=== PATIENT | female | born 1990 | race Caucasian/White ===

== ENCOUNTER 2017-07-01 01:34 | Inpatient (IN) ==
[2017-07-01 02:06] LABS: Bilirubin,Urine Negative (Negative); Blood,Urine Moderate (Negative); Clarity,Urine Cloudy (Clear); Color,Urine Yellow (Yellow); Glucose,Urine (UA) Normal (Normal); Ketones,Urine Trace mg/dL (Negative); Leukocyte Esterase,Urine Large (Negative); Nitrite,Urine Negative (Negative); PH,Urine 6.5 pH Units (5.0-8.0); Protein,Urine Negative (Neg-Trace); Urobilinogen,Urine Normal (Normal)
[2017-07-01 02:08] LABS: Bacteria,Urine Many per hpf (None-Few); Hyaline Casts,Urine None Seen per lpf (None-Few); Squamous Epithelial Cell,Urine Many per lpf (None-Few); WBC,Urine TNTC per hpf (0-3)
[2017-07-01 02:12] LABS: Amphetamine Screen,Urine Negative ng/mL (Cutoff=1000); Barbiturate Screen,Urine Negative ng/mL (Cutoff=200); Benzodiazepines Screen,Urine Negative ng/mL (Cutoff=200); Cannabinoid Screen,Urine Negative ng/mL (Cutoff = 50); Cocaine Screen,Urine Negative ng/mL (Cutoff= 300); Opiate Screen,Urine Negative ng/mL (Cutoff=300); Phencyclidine Screen,Urine Negative ng/mL (Cutoff=25)
[2017-07-01 02:14] LABS: Basophils % 0.3 %; Eosinophils % 0.4 %; Hematocrit 42.9 % (35.3-44.9); Hemoglobin 14.6 g/dL (11.5-15.4); Immature Granulocytes % 0.3 % (0-4); Lymphocytes # 2.4 K/mcL (0.6-4.6); Lymphocytes % 24.8 %; Mean Corpuscular Volume 88.3 fL (83.0-100.0); Mean Platelet Volume 8.7 fL (9.4-12.4); Monocytes # 0.5 K/mcL (0.0-1.3); Monocytes % 4.9 %; Neutrophils # 6.8 K/mcL (1.6-8.9); Platelet Count 269 K/mcL (140-400); Red Blood Count 4.86 M/mcL (3.82-4.97); Red Cell Distribution Width 12.8 % (11.5-14.5); Segmented Neutrophils % 69.3 %
[2017-07-01] MEDS ORDERED: Nitrofurantoin (BID) 100 MG CAPSULE PO ONE (02:20)
[2017-07-01 02:33] LABS: BUN/Creatinine Ratio 17 (6-26); Blood Urea Nitrogen 14 mg/dL (7-20); Calcium 9.5 mg/dL (8.6-10.8); Carbon Dioxide 23 mEq/L (19-29); Chloride 105 mEq/L (98-109); Glucose 97 mg/dL (70-99); Osmolality,Calculated 288 (280-300); Potassium 3.6 mEq/L (3.5-4.5); Sodium 139 mEq/L (136-145); eGFR For African Americans > 60 (> 60); eGFR For Non-African Americans > 60 (> 60)
[2017-07-01 02:35] LABS: Acetaminophen < 1.0 mcg/mL (10-30); Ethanol < 10 mg/dL (0-10); Salicylate < 5.0 mg/dL (15-30)
--- NOTE | 2017-07-01 02:40 | Emergency Department Note ---
Disposition Clinical Impression: Suicidal ideation Overdose Qualifiers: Encounter type: initial encounter Injury intent: intentional self-harm Qualified Code(s): T50.902A - Poisoning by unspecified drugs, medicaments and biological substances, intentional self-harm, initial encounter UTI (urinary tract infection) Qualifiers: Urinary tract infection type: acute cystitis Hematuria presence: with hematuria Qualified Code(s): N30.01 - Acute cystitis with hematuria Disposition: Admitted As Inpatient Condition: Good General Adult HPI - General Chief complaint: ED Psychiatric Symptoms Stated complaint: suicide attempt Time Seen by Provider: 07/01/17 01:49 Source: patient Mode of arrival: ambulatory Limitations: no limitations Nursing Notes Reviewed: Yes Vital Signs Reviewed: Yes - History of Present Illness HPI Narrative: 26-year-old female who reports that approximately 1-2 hours prior to arrival she took 80 mg of BuSpar in an attempt to kill herself. She reports she takes an antidepressant also but did not overdose on it and does not know what it is. She states that she is depressed and wanted to kill herself due to social issues with her boyfriend. She denies having any other medical problems aside from depression. She denies having any pain. She denies any urinary symptoms or abdominal pain. She states that she feels tired but otherwise feels well. Denies fever. No N/V/D. Pain Scale: 0 Improves with: nothing Worsens with: nothing Associated symptoms: Reports: denies other symptoms Treatments Prior to Arrival: none - Related Data Home Medications Medication Instructions Recorded Confirmed Buspirone HCl [Buspar] 10 mg PO BID PRN 07/01/17 07/01/17 Allergies Allergy/AdvReac Type Severity Reaction Status Date / Time No Known Allergies Allergy Verified 07/01/17 01:37 All systems ED: reviewed and negative except as stated. Constitutional: Denies: fever Cardiovascular: Denies: chest pain Respiratory: Denies: cough Gastrointestinal: Denies: abdominal pain Musculoskeletal: Denies: back pain Integumentary: Denies: rash Endocrine: Reports: fatigue Past Medical History - Past Medical History Medical history: Reports: thyroid disease Psychiatric history: Reports: anxiety, depression - Social History Smoking Status: Never smoker Smokeless Tobacco Status: No Alcohol use: Reports: rarely Drug use: Reports: none Physical Exam - General Limitations: no limitations General appearance: alert, other - Head Head exam: atraumatic - Eye Eye exam: Present: normal appearance, PERRL - ENT ENT exam: normal exam, normal oropharynx - Neck Neck exam: Present: normal inspection - Chest Chest inspection: Present: normal inspection - Respiratory Respiratory exam: Present: normal lung sounds bilaterally. Absent: respiratory distress - Cardiovascular Cardiovascular exam: Present: regular rate, normal rhythm - Abdominal Exam Abdominal exam: Present: soft, Non-Tender - Extremities Exam Extremities exam: Present: normal inspection - Neurological Exam Neurological exam: Present: alert, oriented X3, CN II-XII intact - Psychiatric Psychiatric exam: Present: depressed - Skin Skin exam: Present: warm, dry Course Course Narrative: She has no hyperreflexia. She is not exhibiting a toxidrome currently. She has mild fatigue. No QT prolongation. Spoke with poison control who state at that dose the main symptoms should be drowsiness and possibly nausea. Length of observation of 12 hours recommended. UTI is present, will admit for medical clearance. Vital Signs Temperature 97.4 F L 07/01/17 01:39 Pulse Rate 84 07/01/17 01:39 Respiratory Rate 14 07/01/17 01:39 Blood Pressure 136/81 07/01/17 01:39 O2 Sat by Pulse Oximetry 98 07/01/17 01:39 Temperature 97.4 F L 07/01/17 01:39 Pulse Rate 84 07/01/17 01:39 Respiratory Rate 14 07/01/17 03:08 Blood Pressure 128/78 07/01/17 03:08 O2 Sat by Pulse Oximetry 98 07/01/17 01:39 Oxygen Delivery Oxygen Delivery Room Air Medical Decision Making - Medical Records Medical records reviewed: Yes I reviewed the patient's medical records. - Lab Data Lab results reviewed: Yes I reviewed the patient's lab results. Result diagrams: 07/01/17 02:06 07/01/17 02:06 Lab Results 07/01/17 07/01/17 07/01/17 Range/Units 01:55 01:55 02:06 WBC 9.8 (4.3-11.1) K/mcL RBC 4.86 (3.82-4.97) M/mcL Hgb 14.6 (11.5-15.4) g/dL Hct 42.9 (35.3-44.9) % MCV 88.3 (83.0-100.0) fL MCH 30.0 (28.0-33.3) pg MCHC 34.0 (31.6-35.5) g/dL RDW 12.8 (11.5-14.5) % Plt Count 269 (140-400) K/mcL MPV 8.7 L (9.4-12.4) fL Immature Gran % 0.3 (0-4) % Seg Neutrophils % 69.3 % Lymphocytes % 24.8 % Monocytes % 4.9 % Eosinophils % 0.4 % Basophils % 0.3 % Neutrophils # 6.8 (1.6-8.9) K/mcL Lymphocytes # 2.4 (0.6-4.6) K/mcL Monocytes # 0.5 (0.0-1.3) K/mcL Eosinophils # 0.0 (0.0-0.6) K/mcL Basophils # 0.0 (0.0-0.2) K/mcL Sodium (136-145) mEq/L Potassium (3.5-4.5) mEq/L Chloride (98-109) mEq/L Carbon Dioxide (19-29) mEq/L BUN (7-20) mg/dL Creatinine (0.57-1.11) mg/dL Est GFR ( Amer) (> 60) Est GFR (Non-Af Amer) (> 60) BUN/Creatinine Ratio (6-26) Glucose (70-99) mg/dL Calculated Osmolality (280-300) Calcium (8.6-10.8) mg/dL Urine Color Yellow (Yellow) Urine Clarity Cloudy A (Clear) Urine pH 6.5 (5.0-8.0) pH Units Ur Specific [place] 1.020 (1.010-1.025) Urine Protein Negative (Neg-Trace) mg/dL Urine Glucose (UA) Normal (Normal) mg/dL Urine Ketones Trace H (Negative) mg/dL Urine Blood Moderate H (Negative) Urine Nitrite Negative (Negative) Urine Bilirubin Negative (Negative) Urine Urobilinogen Normal (Normal) mg/dL Ur Leukocyte Esterase Large H (Negative) Urine Microscopic RBC 5-15 H (0-3) per hpf Urine Microscopic WBC TNTC H (0-3) per hpf Ur Squamous Epith Cells Many H (None-Few) per lpf Urine Bacteria Many H (None-Few) per hpf Hyaline Casts None Seen (None-Few) per lpf Salicylates (15-30) mg/dL Urine Opiates Screen Negative (Kzrogb=636) ng/mL Acetaminophen (10-30) mcg/mL Ur Barbiturates Screen Negative (Qfnlzi=171) ng/mL Ur Phencyclidine Scrn Negative (Cutoff=25) ng/mL Ur Amphetamines Screen Negative (Fiqbdd=7726) ng/mL U Benzodiazepines Scrn Negative (Xdlgka=802) ng/mL Urine Cocaine Screen Negative (Cutoff= 300) ng/mL U Marijuana (THC) Screen Negative (Cutoff = 50) ng/mL Ethyl Alcohol (0-10) mg/dL 07/01/17 Range/Units 02:06 WBC (4.3-11.1) K/mcL RBC (3.82-4.97) M/mcL Hgb (11.5-15.4) g/dL Hct (35.3-44.9) % MCV (83.0-100.0) fL MCH (28.0-33.3) pg MCHC (31.6-35.5) g/dL RDW (11.5-14.5) % Plt Count (140-400) K/mcL MPV (9.4-12.4) fL Immature Gran % (0-4) % Seg Neutrophils % % Lymphocytes % % Monocytes % % Eosinophils % % Basophils % % Neutrophils # (1.6-8.9) K/mcL Lymphocytes # (0.6-4.6) K/mcL Monocytes # (0.0-1.3) K/mcL Eosinophils # (0.0-0.6) K/mcL Basophils # (0.0-0.2) K/mcL Sodium 139 (136-145) mEq/L Potassium 3.6 (3.5-4.5) mEq/L Chloride 105 (98-109) mEq/L Carbon Dioxide 23 (19-29) mEq/L BUN 14 (7-20) mg/dL Creatinine 0.81 (0.57-1.11) mg/dL Est GFR ( Amer) > 60 (> 60) Est GFR (Non-Af Amer) > 60 (> 60) BUN/Creatinine Ratio 17 (6-26) Glucose 97 (70-99) mg/dL Calculated Osmolality 288 (280-300) Calcium 9.5 (8.6-10.8) mg/dL Urine Color (Yellow) Urine Clarity (Clear) Urine pH (5.0-8.0) pH Units Ur Specific [place] (1.010-1.025) Urine Protein (Neg-Trace) mg/dL Urine Glucose (UA) (Normal) mg/dL Urine Ketones (Negative) mg/dL Urine Blood (Negative) Urine Nitrite (Negative) Urine Bilirubin (Negative) Urine Urobilinogen (Normal) mg/dL Ur Leukocyte Esterase (Negative) Urine Microscopic RBC (0-3) per hpf Urine Microscopic WBC (0-3) per hpf Ur Squamous Epith Cells (None-Few) per lpf Urine Bacteria (None-Few) per hpf Hyaline Casts (None-Few) per lpf Salicylates < 5.0 L (15-30) mg/dL Urine Opiates Screen (Stjcxe=208) ng/mL Acetaminophen < 1.0 L (10-30) mcg/mL Ur Barbiturates Screen (Wumnxh=702) ng/mL Ur Phencyclidine Scrn (Cutoff=25) ng/mL Ur Amphetamines Screen (Sdradd=4458) ng/mL U Benzodiazepines Scrn (Xxxnge=311) ng/mL Urine Cocaine Screen (Cutoff= 300) ng/mL U Marijuana (THC) Screen (Cutoff = 50) ng/mL Ethyl Alcohol < 10 (0-10) mg/dL - Radiology Data Radiology results reviewed: Yes I reviewed the patient's radiology results. - EKG Data EKG #1 EKG attestation: Yes I reviewed and interpreted this EKG. EKG shows normal: sinus rhythm Rate: normal Rhythm: NSR [place]/QRS: normal Interpretation: no acute changes, other (QTC 384) Attestation Statement - Attestation Attestation: I, Mauro Alvarez, examined this patient and my medical decision-making was reviewed with the WASHER ENGINEER/PA/Advanced Practice Nurse/Resident Physician. I agree with the documented findings, disposition and treatment plan as described except to the extent set forth below. 26-year-old female presents to the emergency department after suicide attempt. Mother called EMS after learning patient had taken 8 tabs of buspirone in an attempt to end her life. Patient states that she has been under increased stress secondary to relationship problems. No history of suicide attempt in the past. Patient denies attempts other than medication overdose. EKG taken in the emergency department showed normal sinus rhythm with rate of 77 with QRS of 85 and QTC of 384. Patient is alert and oriented during the exam, has no clonus on exam. Patient is mildly nauseated. She will be admitted to the hospital for further care and evaluation. The resident spoke with the Poison Control Center who recommended observation for 12 hours
[2017-07-01] MEDS ORDERED: Ondansetron ODT 4 MG TAB.RAPDIS SL ONE (02:45)
[2017-07-01] MEDS ORDERED: Naloxone 0.4 MG/ML INJ IVP PRN (03:09)
--- NOTE | 2017-07-01 03:26 | Internal Med History&Physical ---
Date of Encounter: 07/01/17 Time of Encounter: 03:11 Assessment and Plan (1) Overdose Current visit: No Status: Acute buspirone overdose d/w ED who d/w poison control, tele monitoring over next 12 hours, IVF Qualifiers: Encounter type: initial encounter Injury intent: intentional self-harm Qualified Code(s): T50.902A - Poisoning by unspecified drugs, medicaments and biological substances, intentional self-harm, initial encounter (2) Suicidal ideation Current visit: No Status: Acute sitter, suicide precautions, consult psych for eval suitability to return home (3) Pyuria Current visit: No Status: Acute empiric macrobid Internal Medicine - H&P: HPI Chief complaint: Overdose History of present illness: Ms. Piedra is a 26 year old female with hx of depression/anxiety who presented after overdose of buspirone. She gets her buspirone from her PCP and has a hx of depression on and off through the years. Due to social issues, she has been feeling more down lately in the last few weeks. She is not established with a mental health provider but reports that she is pending establishment of care with a provide in [place]. Today, she felt depressed and recall taking 8 pills of buspirone in an attempt get respite. EKG personally reviewed with rate 77, NSR, QTC 384 Past Med Surg Social Fam HX - Past Medical History Medical history: thyroid disease Psychiatric history: anxiety, depression - Social History Smoking Status: Never smoker Smokeless Tobacco Status: No Alcohol use: rarely Drug use: none Internal Medicine - H&P: Meds Buspirone HCl [Buspar] 10 mg PO BID PRN 07/01/17 [History] 3 Allergy/AdvReac Type Severity Reaction Status Date / Time No Known Allergies Allergy Verified 07/01/17 01:37 All Systems PM: A 10-system review of systems was performed and is negative for pertinent findings except as documented above in the HPI. Review of systems: ROS 14 point review of systems reviewed as best as possible given presentation. Pertinent positive or negative as per HPI or otherwise reviewed as negative - Constitutional Vitals: Temp Pulse Resp BP Pulse Ox 97.4 F L 84 14 128/78 98 07/01/17 01:39 07/01/17 01:39 07/01/17 03:08 07/01/17 03:08 07/01/17 01:39 Exam: General - AAO x 3 Psych - Appropriate affect/speech. No agitation Eyes - DARYL. Eye lids intact. No scleral icterus Heart - Sinus. RRR. S1 and S2 present. No added HS/murmurs appreciated. No elevated JVD appreciated. Lung - Adequate air entry b/l, No crackles/wheezes appreciated GI - Soft, non-tender. No hepatosplenomegaly/ascites. BS+ - No CVA/suprapubic tenderness or palpable bladder distension Skin - Intact. No rash/petechiae/ecchymosis. Warm extremities MSK - Joints with normal ROM. No joint swellings Internal Med - H&P Results - Labs CBC & Chem 7: 07/01/17 02:06 07/01/17 02:06
[2017-07-01] MEDS: Ondansetron ODT 4 MG TAB.RAPDIS SL PRN ×2 (03:46→12:53)
[2017-07-01] MEDS: 0.9 % Sodium Chloride 1,000 ML IVC SCH ×2 (04:24→14:23)
[2017-07-01] MEDS ORDERED: Nitrofurantoin (BID) 100 MG CAPSULE PO SCH (08:00)
--- NOTE | 2017-07-01 12:23 | Consult Note ---
Date of Encounter: 07/01/17 Time of Encounter: 11:40 Assessment & Recommendation (1) Major depressive disorder, recurrent episode Current visit: Yes Status: Acute Assessment & Recommendation: patient to start her medication prozac 20 mg po am. f/u with therapist and psychiatrist. Qualifiers: Major depression episode severity: moderate Qualified Code(s): F33.1 - Major depressive disorder, recurrent, moderate History of Present Illness Patient: new to practice Requesting Physician: Christina Flores CNP Reason for consult: overdose History of present illness: Ms. Piedra is a 26 year old female evaluated today , she was consulted as she overdosed on 8 pills of buspirone . she has h/o depression and anxiety , states she had stopped taking her medication for several months as felt good and thought did not need it. She moved to [place] with her 8 yr old to live with her boyfriend, things did not work out and he told her we need to take step back and her depression and anxiety got worse, she did not wanted to hurt her but was very stressed and anxious so took 8 pills and then called friend , who then called ambulance. she at present is not suicidal and does not want to hurt self, wants to get better . She has h/o panic attacks, and denies any previous si / attempts , no psych inpatient, getting medicine from PCp . no h/o psychosis or manic episode AT PRESENT remains depress, anxious but not suicidal or homicidal. she has made appointment for 07/04 with therapist and has support from her mother , with whom she is planning to live with , she works as cook and pilates instructor at [employer]. A/P Major depressive episode recurrent. anxiety disorder nos REC: patient should be started back on 20 mg prozac which helped her before and follow up appointment with counsellor and out patient . she is Not in immenent danger to self/others , cleared from psych. Thank you for consult. CC: Christina Flores CNP Past Med Surg Social Fam HX - Past Medical History Medical history: thyroid disease - Past Psychiatric History Psychiatric history: Reports: anxiety, depression Family psychiatric history: Unknown Family History of Suicide: None - Social History Smoking Status: Never smoker Smokeless Tobacco Status: No Alcohol use: rarely Drug use: none Medications & Allergies FLUoxetine HCl [Prozac] 40 mg PO DAILY 07/01/17 [History] Levothyroxine Sodium [Levoxyl] 88 mcg PO DAILY 07/01/17 [History] 3 Allergy/AdvReac Type Severity Reaction Status Date / Time No Known Allergies Allergy Verified 07/01/17 01:37 Review of Systems Psychiatric: Reports: depression, anxiety, panic attacks Mental Status Exam Patient orientation: Yes Person, Yes Time, Yes Place Level of alertness: Alert Patient appearance: Appropriate Behavior: calm, cooperative Psychomotor activity: Normal Eye contact: Maintains Eye Contact Mood description: Depressed, Anxious Affect description: congruent with mood Speech pattern: Normal rate, Normal rhythm, Normal tone Speech volume: Normal Thought process: Intact Thought content: Yes Intact Attention span: Capable of Focused Attention Memory description: Grossly Intact Patient reliability: Reliable Historian Intelligence estimate: Average Judgment: Good Insight: Full Results - Vital Signs Vital signs: Temp Pulse Resp BP Pulse Ox 98.8 F 85 17 125/79 99 07/01/17 07:41 07/01/17 07:41 07/01/17 07:41 07/01/17 07:41 07/01/17 07:41 - Labs Labs: Laboratory Last Values WBC 9.8 K/mcL (4.3-11.1) 07/01/17 02:06 RBC 4.86 M/mcL (3.82-4.97) 07/01/17 02:06 Hgb 14.6 g/dL (11.5-15.4) 07/01/17 02:06 Hct 42.9 % (35.3-44.9) 07/01/17 02:06 MCV 88.3 fL (83.0-100.0) 07/01/17 02:06 MCH 30.0 pg (28.0-33.3) 07/01/17 02:06 MCHC 34.0 g/dL (31.6-35.5) 07/01/17 02:06 RDW 12.8 % (11.5-14.5) 07/01/17 02:06 Plt Count 269 K/mcL (140-400) 07/01/17 02:06 MPV 8.7 fL (9.4-12.4) L 07/01/17 02:06 Immature Gran % 0.3 % (0-4) 07/01/17 02:06 Seg Neutrophils % 69.3 % 07/01/17 02:06 Lymphocytes % 24.8 % 07/01/17 02:06 Monocytes % 4.9 % 07/01/17 02:06 Eosinophils % 0.4 % 07/01/17 02:06 Basophils % 0.3 % 07/01/17 02:06 Neutrophils # 6.8 K/mcL (1.6-8.9) 07/01/17 02:06 Lymphocytes # 2.4 K/mcL (0.6-4.6) 07/01/17 02:06 Monocytes # 0.5 K/mcL (0.0-1.3) 07/01/17 02:06 Eosinophils # 0.0 K/mcL (0.0-0.6) 07/01/17 02:06 Basophils # 0.0 K/mcL (0.0-0.2) 07/01/17 02:06 Sodium 139 mEq/L (136-145) 07/01/17 02:06 Potassium 3.6 mEq/L (3.5-4.5) 07/01/17 02:06 Chloride 105 mEq/L (98-109) 07/01/17 02:06 Carbon Dioxide 23 mEq/L (19-29) 07/01/17 02:06 BUN 14 mg/dL (7-20) 07/01/17 02:06 Creatinine 0.81 mg/dL (0.57-1.11) 07/01/17 02:06 Est GFR ( Amer) > 60 (> 60) 07/01/17 02:06 Est GFR (Non-Af Amer) > 60 (> 60) 07/01/17 02:06 BUN/Creatinine Ratio 17 (6-26) 07/01/17 02:06 Glucose 97 mg/dL (70-99) 07/01/17 02:06 Calculated Osmolality 288 (280-300) 07/01/17 02:06 Calcium 9.5 mg/dL (8.6-10.8) 07/01/17 02:06 Urine Color Yellow (Yellow) 07/01/17 01:55 Urine Clarity Cloudy (Clear) A 07/01/17 01:55 Urine pH 6.5 pH Units (5.0-8.0) 07/01/17 01:55 Ur Specific [place] 1.020 (1.010-1.025) 07/01/17 01:55 Urine Protein Negative mg/dL (Neg-Trace) 07/01/17 01:55 Urine Glucose (UA) Normal mg/dL (Normal) 07/01/17 01:55 Urine Ketones Trace mg/dL (Negative) H 07/01/17 01:55 Urine Blood Moderate (Negative) H 07/01/17 01:55 Urine Nitrite Negative (Negative) 07/01/17 01:55 Urine Bilirubin Negative (Negative) 07/01/17 01:55 Urine Urobilinogen Normal mg/dL (Normal) 07/01/17 01:55 Ur Leukocyte Esterase Large (Negative) H 07/01/17 01:55 Urine Microscopic RBC 5-15 per hpf (0-3) H 07/01/17 01:55 Urine Microscopic WBC TNTC per hpf (0-3) H 07/01/17 01:55 Ur Squamous Epith Cells Many per lpf (None-Few) H 07/01/17 01:55 Urine Bacteria Many per hpf (None-Few) H 07/01/17 01:55 Hyaline Casts None Seen per lpf (None-Few) 07/01/17 01:55 Salicylates < 5.0 mg/dL (15-30) L 07/01/17 02:06 Urine Opiates Screen Negative ng/mL (Yytcbl=219) 07/01/17 01:55 Acetaminophen < 1.0 mcg/mL (10-30) L 07/01/17 02:06 Ur Barbiturates Screen Negative ng/mL (Pdriyo=010) 07/01/17 01:55 Ur Phencyclidine Scrn Negative ng/mL (Cutoff=25) 07/01/17 01:55 Ur Amphetamines Screen Negative ng/mL (Dwobzs=6470) 07/01/17 01:55 U Benzodiazepines Scrn Negative ng/mL (Texsha=202) 07/01/17 01:55 Urine Cocaine Screen Negative ng/mL (Cutoff= 300) 07/01/17 01:55 U Marijuana (THC) Screen Negative ng/mL (Cutoff = 50) 07/01/17 01:55 Ethyl Alcohol < 10 mg/dL (0-10) 07/01/17 02:06 Consult Discharge Plan - Plan Referrals: NONE,PCP [Primary Care Provider] -
[2017-07-01 12:58] VITALS: BP 111/73
--- NOTE | 2017-07-01 14:52 | Discharge Summary ---
Date of Encounter: 07/01/17 Time of Encounter: 14:48 - Discharge Diagnosis (1) Suicidal ideation Priority: Primary Status: Resolved Comments: With intentional drug overdose. Evaluated by psychiatry who suspected major depression but did not feel patient was suicidal or homicidal or danger to self or others. Discharge home with mother. Has outpatient psychiatric follow-up on 07/04/2017. (2) Overdose Priority: Primary Status: Acute Comments: Took 8 pills of BuSpar prior to presentation. Presently control contacted in ED who recommended 12 hours of observation and IV fluids. Discussed with was control on 07/01/2017 and no further treatment recommended at this time. Qualifiers: Encounter type: initial encounter Injury intent: intentional self-harm Qualified Code(s): T50.902A - Poisoning by unspecified drugs, medicaments and biological substances, intentional self-harm, initial encounter (3) Major depressive disorder, recurrent episode Priority: Primary Status: Acute Comments: per hx. evaluated by psychiatry who recommended starting Prozac 20 mg. Has outpatient follow-up with psychiatry scheduled . Qualifiers: Major depression episode severity: severe Psychotic features: without psychotic features Qualified Code(s): F33.2 - Major depressive disorder, recurrent severe without psychotic features (4) UTI (urinary tract infection) Priority: Primary Status: Acute Comments: UA indicative of UTI. Discharge home on Macrobid. Follow urine culture in no ATB accordingly. Qualifiers: Urinary tract infection type: acute cystitis Hematuria presence: with hematuria Qualified Code(s): N30.01 - Acute cystitis with hematuria - Discharge Medications Prescriptions: Ondansetron ODT [Zofran ODT] 4 mg SL Q8HR PRN #21 tab.rapdis PRN Reason: Nausea And Vomiting FLUoxetine HCl [PROzac] 20 mg PO DAILY #30 capsule Nitrofurantoin (BID) [Macrobid] 100 mg PO BIDWM #14 capsule Home Medications: FLUoxetine HCl [PROzac] 20 mg PO DAILY #30 capsule 07/01/17 [Rx] Levothyroxine Sodium [Levoxyl] 88 mcg PO DAILY 07/01/17 [History] Nitrofurantoin (BID) [Macrobid] 100 mg PO BIDWM #14 capsule 07/01/17 [Rx] Ondansetron ODT [Zofran ODT] 4 mg SL Q8HR PRN #21 tab.rapdis 12/04/17 [Rx] Allergies/Adverse Reactions: 3 Allergy/AdvReac Type Severity Reaction Status Date / Time No Known Allergies Allergy Verified 07/01/17 01:37 Date of admission: 07/01/17 03:10 Primary care physician: PCP NONE Discharging clinician: Christina Flores Anticipated date of discharge: 07/01/17 - Patient Status Disposition: Home, Self-Care Condition: Good Functional capacity at discharge: independent ambulation Overall status at discharge: patient is back to baseline - Discharge Instructions Instructions: Depression (DC), Anxiety (DC), Fluoxetine (By mouth), Ondansetron (By mouth), Nitrofurantoin Combination (By mouth), Urinary Tract Infection in Women (DC) Follow Up With: NONE,PCP [Primary Care Provider] - - Diet and Activity Activity: increase activity as tolerated Diet: advance to your usual diet Interval History: Seen and examined at bedside; patient says she is tired and nauseated time otherwise she has no other complaints. Denies SI. No thoughts of wanting a harm himself or kill self. Mother at bedside states she feels currently taking patient home. Hospital course: See assessment and plan for hospital course - Time Spent with Patient Total time spent providing and/or coordinating discharge services: - Constitutional Vitals: Temp Pulse Resp BP Pulse Ox 98.5 F 86 16 111/73 96 07/01/17 12:57 07/01/17 12:57 07/01/17 12:57 07/01/17 12:57 07/01/17 12:57 - Head Head exam: Present: atraumatic, normocephalic - Eye Eye exam: Present: PERRL, conjuntiva pink, sclera anicteric Pupils: Present: PERRL - Neck Neck exam general surgery: Present: supple, trachea midline. Absent: lymphadenopathy - Respiratory Respiratory exam: Present: CTAB. Absent: accessory muscle use, rales, rhonchi, wheezes - Cardiovascular Cardiovascular exam: Present: RRR, +S1, +S2. Absent: diastolic murmur, gallop, rubs, systolic murmur - GI/Abdominal GI/Abdominal exam: Present: normal bowel sounds, soft, no peritoneal signs. Absent: distended, tenderness - Extremities Exam Extremities exam: Present: warm, radial pulses palpable and symmetrical. Absent : calf tenderness, cyanotic, pedal edema - Neurological Exam Neurological exam: Present: CN II-XII intact, oriented X3, no focal deficits. Absent: pronater drift, facial droop, speech deficit - Skin Skin exam: Present: dry, intact
--- NOTE | 2017-07-03 18:16 | Electrocardiograph Report ---
[place] [id number] Test Date: 2017-07-01 Pat Name: Coleen Piedra Department: 104 Room: 3B Gender: F Records Analyst: : 1990 Requested By: Mauro Alvarez Order Number: [id number] Reading MD: Arya Adam DO Measurements Intervals [place] Rate: 77 P: 10 AK: 159 QRS: 75 QRSD: 85 T: 47 QT: 352 QTc: 384 Interpretive Statements SINUS RHYTHM Electronically Signed On 07-03-2017 18:14:56 EST by Arya Adam DO
--- NOTE | 2017-07-03 18:16 | Electrocardiograph Report ---
[place] [id number] Test Date: 2017-07-01 Pat Name: Coleen Piedra Department: 104 Room: Gender: Female Reimbursement Analyst: : 1990 Requested By: Christina Flores Order Number: [id number] Reading MD: Arya Adam DO Measurements Intervals [place] Rate: 80 P: 17 IA: 177 QRS: 75 QRSD: 84 T: 43 QT: 347 QTc: 384 Interpretive Statements SINUS RHYTHM Electronically Signed On 07-03-2017 18:14:44 EST by Arya Adam DO
== END 2017-07-01 15:40 | disposition home or self-care (01) | DRG 817 ==
LOC: EMEROO 01:34 → 3BNU 01:34
PROVIDERS: ADMIT Internal Medicine Hematology & Oncology; ATTEND Registered Nurse